=== PATIENT | female | born 1945 | race Caucasian/White ===

== ENCOUNTER → 2020-05-08 | Outpatient (CLI) | payer MEDICARE, OTHER ==
[~2020-05-08] MED LIST: ASPIRIN EC81 MG PO
== END ==
LOC: EXRD 10:56
DX: M79.604 Pain in right leg (principal); M79.605 Pain in left leg
CPT/HCPCS: 93925

== ENCOUNTER → 2021-07-16 | Outpatient (CLI) | payer MEDICARE, OTHER | LOC: CT 11:30 | DX: R91.8 Other nonspecific abnormal finding of lung field (principal); J98.4 Other disorders of lung | CPT/HCPCS: 71250 ==

== ENCOUNTER → 2021-10-03 | Day surgery (SDC) | payer MEDICARE, OTHER ==
[~2021-10-03] MED LIST changes: +AMARYL 2MG TABLE2 MG PO; +AMLODIPINE BESY10 MG PO; +ATORVASTATIN CA40 MG PO; +FENOFIBRATE145 MG PO; +LISINOPRIL20 MG PO; +PROTONIX 40 MG40 M1 PO; +VITAMIN D310 MC4 PO
[2021-10-03 08:54] LABS: HEMOGLOBIN 14.2 gm/dl (12.3-15.3); RED BLOOD COUNT 4.92 M/UL (4.00-5.10); WHITE BLOOD COUNT 8.2 K/UL (4.5-11.0)
[2021-10-04 06:10] LABS: HBSAG SCREEN Negative (Negative); HCV AB <0.1 (0.0-0.9); HEP A AB, IGM Negative (Negative); HEP B CORE AB, IGM Negative (Negative); VITAMIN D, 25-HYDROXY 33.2 ng/mL (30.0-100.0)
== END | disposition home or self-care (01) ==
LOC: OR 07:30
PROVIDERS: Internal Medicine; Internal Medicine Gastroenterology
DX: K31.9 Disease of stomach and duodenum, unspecified (principal); K29.51 Unspecified chronic gastritis with bleeding; K21.00 Gastro-esophageal reflux disease with esophagitis, without bleeding; K44.9 Diaphragmatic hernia without obstruction or gangrene; K74.69 Other cirrhosis of liver; I10 Essential (primary) hypertension; E11.9 Type 2 diabetes mellitus without complications
CPT/HCPCS: 36415; 80053; 80061; 80074; 82105; 82607; 82746; 82962; 83036; 84439; 84443; 85025; 85610; 85730; 87086; J7040